=== PATIENT | female | born 2000 | race Caucasian/White ===

== ENCOUNTER 2021-01-07 09:15 | Emergency (ER) | payer OTHER ==
[~2021-01-07] VITALS: Ht 175.3 cm; Wt 55.5 kg
[2021-01-07 09:17] VITALS: TEMP 97.5
[2021-01-07 10:13] LABS: HEMATOCRIT 47.8 % (37.0-47.0); HEMOGLOBIN 15.9 g/dl (12.5-16.0); MEAN CELL VOLUME 87 fl (80.0-100.0); MEAN CORPUSCULAR HEMOGLOBIN 29 pg (27.0-31.0); MEAN CORPUSCULAR HGB CONC 33 g/dl (33.0-37.0); MEAN PLATELET VOLUME 9.5 fl (7.4-10.4); PLATELET COUNT 333 K/mm3 (130-400); RED BLOOD COUNT 5.49 M/mm3 (4.10-5.30); REDCELL DISTRIBUTION WIDTH-CV 11.9 % (11.5-14.5)
[2021-01-07 10:24] LABS: CALCIUM 10.7 mg/dL (8.4-10.2); CREATININE, serum 1.35 (0.52-1.25); MAGNESIUM 2.1 mg/dL (1.6-2.3); POTASSIUM 5.4 mmol/L (3.4-5.0)
[2021-01-07 10:40] LABS: TROPONIN-I 0.213 ng/mL (0.000-0.035)
[2021-01-07 10:55] LABS: PROTHROMBIN TIME 11.2 SECONDS (9.7-12.8)
[2021-01-07 11:04] LABS: BAND 1 % (0-10); EOSINOPHIL 1 % (0-4); LYMPHOCYTE 7 % (20.0-51.0); METAMYELOCYTE 1 % (0-0); NEUTROPHILS 87 % (42.0-75.2); PLATELET ESTIMATE NORMAL (NORMAL)
[2021-01-07 11:05] LABS: TEAR DROP CELLS 1+
[2021-01-07 12:46] LABS: PATHOLOGY DIFF REVIEW OK
[2021-01-07 13:42] VITALS: BP 91/59; PULSE 91
== END 2021-01-07 13:50 | disposition home or self-care (01) ==
LOC: COL.ER 09:15
PROVIDERS: Emergency Medicine
DX: R55 Syncope and collapse (principal); D72.829 Elevated white blood cell count, unspecified; R79.1 Abnormal coagulation profile; R77.8 Other specified abnormalities of plasma proteins; R00.0 Tachycardia, unspecified
CPT/HCPCS: J2405; J7030